=== PATIENT | female | born 1985 | race Caucasian/White ===

== ENCOUNTER → 2020-06-30 12:20 | Outpatient (BNVA) | payer SELFPAY | PROVIDERS: PCP Nurse Practitioner Family; Visit Provider Nurse Practitioner Family | DX: J06.9 Acute upper respiratory infection, unspecified (principal); R68.89 Other general symptoms and signs | CPT/HCPCS: 87400 ==

== ENCOUNTER 2021-09-23 11:59 | Emergency (ER) | payer MEDICAID, SELFPAY ==
[2021-09-23 12:27] VITALS: BP 102/67; PULSE 96; RESP 16; TEMP 36.8; O2SAT 100; BMI 21.3
--- NOTE | 2021-09-23 12:40 | CT_ITS ---
WS: [id number] CT ABDOMEN AND PELVIS WITH CONTRAST HISTORY: lower abd pain, recent hysterectomy on 09/09, possible fistula TECHNIQUE: Imaging performed of the abdomen and pelvis with IV contrast. Single phase imaging of the abdomen. Coronal and sagittal reformats are submitted. All CT scans at [facility] use at [address] one of these dose optimization techniques: automated exposure control; mA and/or kV adjustment per patient size (includes targeted exams where dose is matched to clinical indication); or iterative re construction. IV CONTRAST: Omnipaque 350; 95 mL IV. Oral contrast: No DLP: 348.90 mGy.cm COMPARISON: None available. Lower thorax: Lung bases are clear. Heart is normal size. No hiatal hernia. Liver/biliary system: Normal size liver. There is a surgical clip along the inferior RIGHT lobe of th e liver. No bile duct dilatation. Normal portal vein. Gallbladder: Status post cholecystectomy. Pancreas: Normal size pancreas and pancreatic duct. No adjacent inflammation. Spleen: Normal size spleen. No mass or infarct. Adrenal glands: Normal. Right kidney: Normal. Left kidney: Abnormal LEFT kidney. Margins of the LEFT kidney are irregular and slightly lobulated. T here are numerous small cortical masses. These are not simple cysts. The largest lobulated nodule in the lower pole measures 17 mm There is an additional solid nodule measuring 12 mm from the upper pole. There are additional scatter ed but subcentimeter small cortical foci of increased attenuation. No obstruction of the kidney. Aorta: Normal. Lymphadenopathy: None. Free fluid: There is a small amount of free fluid in the pelvis. Fluid is in the midline and extends to the RIGHT adnexa. Collection measures 6.3 x 2.1 cm and is conforming to the RIGHT adnexa. There is adjacent GI tract. There is soft tissue stranding especially within the anterior RIGHT lower quadran t. GI tract: Normal appendix extends into the RIGHT lower quadrant close to the postsurgical inflammator y changes. Abdominal wall: Unremarkable abdominal wall. No hernia. Pelvis: Postoperative changes in the pelvis. There is a partially loculated fluid collection the RIGH T adnexa measuring 6.3 x 2.1 cm. This is partially surrounded by GI tract. There is also small amount of free fluid more midline. Soft tissue stranding and induration within the pelvis. No free air. Bones: Unremarkable. CT/CT abdomen pelvis w con* [id number] IMPRESSION: 1. Patient is recent status post hysterectomy. 2. Fluid collection in the RIGHT adnexa measures 6.3 x 2.1 cm and is conformin g to the pelvic space. This could very well be a developing abscess or postoper ative seroma/hematoma. 3. Moderate soft tissue inflammation in the pelvis. 4. No free air. 5. Multiple high attenuation LEFT renal masses. Renal neoplasm is not excluded . Recommend follow-up renal ultrasound which can be performed on an outpatient basis. These masses will need to be evaluated for possible renal neoplasm. Notified Madelin Hinds MD at 09/23/2021 1:50 PM.
--- NOTE | 2021-09-23 12:54 | ED_ITS ---
HPI - General Adult General: Chief complaint: Abdominal Pain Stated complaint: Abd , back, genital pain Time Seen by Provider: 09/23/21 12:40 History of Present Illness: Patient is a 35-year-old female with a history of recent hysterectomy on 09/07/2021 from [facility], history of tubal ligations, prior C- section, cholecystectomy presenting to the emergency room with remittent lower abdominal pain. Patient says the pain started 3 days ago and has been progressively getting worse. Patient denies any fever/chills, new vaginal discharge or drainage. Patient denies any nausea/vomiting, decreased p.o. intake, diarrhea melena hematochezia. Since her surgery, patient has had dysuria symptoms. No prior history of renal colic. Denies any cough, runny nose sore throat, chest pain, short of breath, palpitation lightheadedness or body aches. Onset:3 days ago Duration:3 days Location:home Severity:moderate Associated symptoms: Deny chest pain, dyspnea, nausea, rash, palpitations or vomiting Review of Systems Const: Denies: fever(s) or chills Eyes: Denies: change in vision ENMT: Denies: mouth pain Card: Denies: chest pain or palpitations Resp: Denies: dyspnea or non-productive cough GI: Reports: abdominal pain (+lower abd pain); Denies: nausea, vomiting or diarrhea : Denies: dysuria Musc: Denies: extremity pain Skin/Breast: Denies: rash or new lesions Neuro: Denies: weakness in extremities Psych: Reports: other (Normal mood) Jay/Lymph: Denies: easy bruising PFSH ED PFSH: Medical History Flu-like symptoms Upper respiratory infection Surgical History H/O: hysterectomy History of cholecystectomy Hx of tubal ligation S/P cholecystectomy Family History Denies family history of Colon cancer Ovarian cancer Diabetes Heart disease Hypercholesteremia Breast cancer Bleeding disorder Hypertension Uterine cancer Thyroid disease Stroke Social History Additional social history: - Tobacco use: Alcohol use: Drug use: Physical Exam Const: COMMON NORMALS: alert HENMT: COMMON NORMALS: atraumatic HEAD & SCALP: atraumatic MOUTH: moist mucous membranes not abnormal Eye: COMMON NORMALS: EOMs intact bilaterally and conjunctivae normal CONJUNCTIVA: Yes conjunctivae normal Neck/C-Spine: COMMON NORMALS: full ROM and supple Resp: COMMON NORMALS: normal respiratory effort and clear to auscultation bilaterally AUSCULTATION: clear to auscultation bilaterally Cardio: COMMON NORMALS: regular rate RATE: regular rate GI: COMMON NORMALS: Soft to palpation PALPATION: Yes Soft to palpation OTHER: +B/l moderate lower abd TTP. NO guarding rebound, guarding, rigidity. No CVA tenderness to percussion. Neg Galindo/Neg McBurney's point tenderness, no suprabupic tenderness to palpation. Extremity: COMMON NORMALS: full ROM Neuro: SENSORIUM/ORIENTATION: Yes alert MOTOR EXAM: No Abnormal motor strength present and Other motor observations present (no focal motor deficits) Psych: COMMON NORMALS: speech normal SPEECH: Yes normal speech MOOD & AFFECT: Yes euthymic mood Course Vital Signs: Vital signs: Vital Signs Temperature 98.3 F 09/23/21 12:27 Pulse Rate 96 09/23/21 12:27 Respiratory Rate 16 09/23/21 12:27 Blood Pressure 102/67 09/23/21 12:27 Pulse Oximetry 100 09/23/21 12:27 Oxygen Delivery Me thod 09/23/21 12:27 MDM - General Adult Medical Decision Making 35-year-old female with a history of cholecystectomy, tubal ligation, recent hysterectomy on 09/07, presenting to the emergency room for evaluation of lower abdominal pain for the last 3 days intermittent colicky. Patient reports pain is 5 out of 10. Patient on exam has moderate tenderness palpation of lower abdomen without guarding or rebound tenderness. Patient is afebrile. White count of 8.5K. Incidental findings of L sided renal lesion discussed extensively with patient. Patient received a copy of the CT report with the documented findings. Patient is instructed to follow up urgently with specialists. Patient agrees with plan to do so. Patient is noted to have a right adnexal collection concerning for abscess jeanna chuck hematoma versus seroma. I have discussed case with Dr. Guerrero who recommended having patient be consulted with the primary surgical team at [facility]. I discussed case with Dr. Ni from [facility] at [facility] who recommended transfer at this time. Patient continues to be hemodynamically stable does not require any additional pain medicine. Case was discussed with Dr. Ni who agreed with the transfer to [facility] for management of R pelvic collection Disposition: Transfer to outside hospital Lab Data : 09/23/21 15:49 09/23/21 15:49 Radiology Impressions Abdomen/Pelvis CT 09/23/21 12:40 IMPRESSION: 1. Patient is recent status post hysterectomy. 2. Fluid collection in the RIGHT adnexa measures 6.3 x 2.1 cm and is conforming to the pelvic space. This could very well be a developing abscess or postoperative seroma/hematoma. 3. Moderate soft tissue inflammation in the pelvis. 4. No free air. 5. Multiple high attenuation LEFT renal masses. Renal neoplasm is not excluded. Recommend follow-up renal ultrasound which can be performed on an outpatient basis. These masses will need to be evaluated for possible renal neoplasm. Notified Madelin Hinds MD at 09/23/2021 1:50 PM. Laboratory Results WBC 8.5 10^3/uL (4.0-10.0) 09/23/21 15:49 RBC 3.96 10^6/uL (4.1-5.3) L 09/23/21 15:49 Hgb 12.6 g/dL (11.5-15.3) 09/23/21 15:49 Hct 37.6 % (37.0-47.0) 09/23/21 15:49 MCV 94.9 fl (81-99) 09/23/21 15:49 MCH 31.8 pg (28.0-34.0) 09/23/21 15:49 MCHC 33.5 g/dL (30.0-36.0) 09/23/21 15:49 RDW 12.0 % (12.1-15.1) L 09/23/21 15:49 Plt Count 158 10^3/cmm (130-400) 09/23/21 15:49 MPV 11.2 fL (7.4-10.4) H 09/23/21 15:49 Neut % (Auto) 58.8 % 09/23/21 15:49 Lymph % (Auto) 26.1 % 09/23/21 15:49 [place] % (Auto) 8.0 % 09/23/21 15:49 Eos % (Auto) 6.0 % 09/23/21 15:49 Baso % (Auto) 0.9 % 09/23/21 15:49 Neut # (Auto) 4.96 10^3/uL (1.8-7.7) 09/23/21 15:49 Lymph # (Auto) 2.2 10^3/uL (0.8-4.8) 09/23/21 15:49 [place] # (Auto) 0.7 10^3/uL (0.2-0.9) 09/23/21 15:49 Eos # (Auto) 0.5 10^3/uL (0.0-0.8) 09/23/21 15:49 Baso # (Auto) 0.1 10^3/uL (0.0-0.1) 09/23/21 15:49 Nucleated RBC % (auto) 0 % 09/23/21 15:49 Nucleated RBCs # 0.0 /100WBC 09/23/21 15:49 Sodium 139 mmol/L (136-145) 09/23/21 15:49 Potassium 4.8 mmol/L (3.5-5.1) 09/23/21 15:49 Chloride 104 mmol/L (98-107) 09/23/21 15:49 Carbon Dioxide 29 mmol/L (22-29) 09/23/21 15:49 Anion Gap 10.8 (5-19) 09/23/21 15:49 BUN 8 mg/dL (6-20) 09/23/21 15:49 Creatinine 0.6 mg/dL (0.5-0.9) 09/23/21 15:49 GFR Calculation 113.8 mL/min (90-130) 09/23/21 15:49 Glucose 91 mg/dL (65-115) 09/23/21 15:49 Calculated Osmolality 286 mOsm/kg (285-295) 09/23/21 15:49 Lactate 0.5 mmol/L (0.5-2.2) 09/23/21 13:13 Calcium 8.7 mg/dL (8.5-10.5) 09/23/21 15:49 Total Bilirubin 0.6 mg/dL (0.15-1.2) 09/23/21 15:49 AST 14 U/L (0-32) 09/23/21 15:49 ALT < 5 U/L (0-33) 09/23/21 15:49 Alkaline Phosphatase 84 IU/L (35-105) 09/23/21 15:49 Total Protein 6.2 g/dL (6.6-8.7) L 09/23/21 15:49 Albumin 3.7 g/dL (3.5-5.2) 09/23/21 15:49 Globulin 2.5 g/dL (1.3-4.6) 09/23/21 15:49 Lipase 26 U/L (13-60) 09/23/21 15:49 HCG, Qual Negative (Negative) 09/23/21 15:07 Imaging Data Other Imaging: Radiologist's impression: Close Abdomen/Pelvis CT (Signed) Kaley Hernandez - 09/23/21 Launch?[place] [id number] CT Scan Report Signed Patient: Ania Johnston Unit #: [id number] : 1985 Age/Sex: 35 / F ADM Date: 09/23/21 Loc: ER Room/Bed: Attending Dr: Ordering Provider/Ordering MD: Madelin Hinds MD Date of Service: 09/23/21 Procedure(s): CT abdomen pelvis w con* [id number] Accession Number(s): [id number] Report Number: [id number] WS: [id number] CT ABDOMEN AND PELVIS WITH CONTRAST HISTORY: lower abd pain, recent hysterectomy on 09/09, possible fistula TECHNIQUE: Imaging performed of the abdomen and pelvis with IV contrast.? Single phase imaging of the abdomen. Coronal and sagittal reformats are submitted.? All CT scans at [facility] use at least one of these dose optimization techniques: automated exposure control; mA and/or kV adjustment per patient size (includes targeted exams where dose is matched to clinical indication); or iterative reconstruction. IV CONTRAST: Omnipaque 350; 95 mL IV. Oral contrast: No DLP: 348.90 mGy.cm COMPARISON: None available. Lower thorax: Lung bases are clear. Heart is normal size. No hiatal hernia. Liver/biliary system: Normal size liver. There is a surgical clip along the inferior RIGHT lobe of the liver. No bile duct dilatation. Normal portal vein. Gallbladder: Status post cholecystectomy.? Pancreas: Normal size pancreas and pancreatic duct. No adjacent inflammation. Spleen: Normal size spleen. No mass or infarct. Adrenal glands: Normal. Right kidney: Normal. Left kidney: Abnormal LEFT kidney. Margins of the LEFT kidney are irregular and slightly lobulated. There are numerous small cortical masses. These are not simple cysts. The largest lobulated nodule in the lower pole measures 17 mm There is an additional solid nodule measuring 12 mm from the upper pole. There are additional scattered but subcentimeter small cortical foci of increased attenuation. No obstruction of the kidney. Aorta: Normal. Lymphadenopathy: None. Free fluid: There is a small amount of free fluid in the pelvis. Fluid is in the midline and extends to the RIGHT adnexa. Collection measures 6.3 x 2.1 cm and is conforming to the RIGHT adnexa. There is adjacent GI tract. There is soft tissue stranding especially within the anterior RIGHT lower quadrant. GI tract: Normal appendix extends into the RIGHT lower quadrant close to the postsurgical inflammatory changes. Abdominal wall: Unremarkable abdominal wall. No hernia. Pelvis: Postoperative changes in the pelvis. There is a partially loculated fluid collection the RIGHT adnexa measuring 6.3 x 2.1 cm. This is partially surrounded by GI tract. There is also small amount of free fluid more midline. Soft tissue stranding and induration within the pelvis. No free air. Bones: Unremarkable. CT/CT abdomen pelvis w con* [id number] IMPRESSION: ? 1.? Patient is recent status post hysterectomy. 2.? Fluid collection in the RIGHT adnexa measures 6.3 x 2.1 cm and is conforming to the pelvic space. This could very well be a developing abscess or postoperative seroma/hematoma. 3.? Moderate soft tissue inflammation in the pelvis. 4.? No free air. 5.? Multiple high attenuation LEFT renal masses. Renal neoplasm is not excluded. Recommend follow-up renal ultrasound which can be performed on an outpatient basis. These masses will need to be evaluated for possible renal neoplasm. ? ? Notified Madelin Hinds MD at 09/23/2021 1:50 PM. ? Dictated By: Kaley Hernandez DO Signed By: Kaley Hernandez DO Signed Date/Time: 09/23/21 1352 DD/ 1336 Discharge Plan Discharge Condition: Stable Prescriptions: No Action [place] 5-325 mg Tablet 1 tab PO Q6H PRN (Reason: Pain) Referrals: MARGOTH Crook FNP [Primary Care Provider] - Coding Level of Care Code ED [employer] for Chg Fwd Exam Comprehensive
[2021-09-23] MEDS: iohexol 350 mg/mL 100 mL Btl IV (13:10)
[2021-09-23 14:14] LABS: Lactate (Lactic Acid level) 0.5 mmol/L (0.5-2.2)
[2021-09-23] MEDS: sodium chloride 0.9% 1,000 ML 999 ML IV (14:31)
[2021-09-23 15:23] LABS: HCG Qualitative Urine. Negative (Negative)
[2021-09-23 16:23] LABS: Basophils # 0.1 10^3/uL (0.0-0.1); Basophils % 0.9 %; Eosinophils # 0.5 10^3/uL (0.0-0.8); Hematocrit 37.6 % (37.0-47.0); Hemoglobin 12.6 g/dL (11.5-15.3); Lymphocytes # 2.2 10^3/uL (0.8-4.8); Lymphocytes % 26.1 %; Mean Corpuscular HGB Conc 33.5 g/dL (30.0-36.0); Mean Corpuscular Hemoglobin 31.8 pg (28.0-34.0); Mean Corpuscular Volume 94.9 fl (81-99); Mean Platelet Volume 11.2 fL (7.4-10.4); Monocytes # 0.7 10^3/uL (0.2-0.9); Neutrophils # 4.96 10^3/uL (1.8-7.7); Neutrophils % 58.8 %; Nucleated Red Blood Cells % 0 %; Platelet Count 158 10^3/cmm (130-400); Red Blood Count 3.96 10^6/uL (4.1-5.3); White Blood Count 8.5 10^3/uL (4.0-10.0)
[2021-09-23 16:47] LABS: Alanine Aminotransferase < 5 U/L (0-33); Albumin Level 3.7 g/dL (3.5-5.2); Alkaline Phosphatase 84 IU/L (35-105); Blood Urea Nitrogen 8 mg/dL (6-20); Calcium 8.7 mg/dL (8.5-10.5); Carbon Dioxide 29 mmol/L (22-29); Chloride 104 mmol/L (98-107); Globulin 2.5 g/dL (1.3-4.6); Glomerular Filtration Rate 113.8 mL/min (90-130); Glucose 91 mg/dL (65-115); Lipase 26 U/L (13-60); Osmolality Calculated 286 mOsm/kg (285-295); Sodium 139 mmol/L (136-145); Total Bilirubin 0.6 mg/dL (0.15-1.2); Total Protein 6.2 g/dL (6.6-8.7)
[2021-09-23 17:02] LABS: Anion Gap 10.8 (5-19); Potassium 4.8 mmol/L (3.5-5.1)
[2021-09-23 17:03] LABS: Aspartate Amino Transferase 14 U/L (0-32)
[2021-09-23 23:43] LABS: Add Urine Microscopic? NO; Charge for UA Resulting for Rev
[2021-09-23 23:54] LABS: Urine Appearance Clear (CLEAR); Urine Color Straw (Yellow)
[2021-09-23 23:55] LABS: Bilirubin Urine Neg (Negative); Blood Urine Neg (Negative); Glucose Urine UA Norm (Normal); Ketones Urine Negative (Negative); Leukocyte Esterase Urine Negative (Negative); Nitrate Urine Negative (Negative); Protein Urine Neg (Negative); Urobilinogen Urine Neg (Negative); pH Urine 7 (5-7)
== END 2021-09-23 22:54 ==
PROVIDERS: Emergency Medicine; Emergency Provider Emergency Medicine; PCP Nurse Practitioner Family
DX: R10.9 Unspecified abdominal pain (principal); Z90.710 Acquired absence of both cervix and uterus
CPT/HCPCS: 74177; 80053; 81003; 81025; 83605; 83690; 85025; 99284; J7030; Q9967

== ENCOUNTER 2022-03-08 10:25 | Outpatient (CLI) | payer MEDICAID, SELFPAY ==
--- NOTE | 2022-03-08 10:36 | MM_ITS ---
WS: [id number] Diagnostic DIGITAL TOMOSYNTHESIS MAMMOGRAM WITH CAD HISTORY: BREAST TENDERNESS, bilateral COMPARISON: None available. Bilateral CC, ML and MLO with tomosynthesis views submitted. Synthetic mammography reviewed. Computer aided detection analyzed. Breast composition: The breasts are heterogeneously dense, which may obscure small masses. No suspici ous masses, microcalcifications or architectural distortion. MM/[place] [id number] IMPRESSION: BI-RADS: 1-Negative FOLLOW UP: 1 Year Follow-up
== END 2022-03-08 10:26 | disposition home or self-care (01) ==
LOC: RAD 10:25
PROVIDERS: PCP Nurse Practitioner Family; Visit Provider Nurse Practitioner Family
DX: N64.4 Mastodynia (principal)
CPT/HCPCS: 77062; G0279

== ENCOUNTER 2022-07-13 09:38 | Outpatient (CLI) | payer MEDICAID, SELFPAY ==
--- NOTE | 2022-07-13 09:50 | USCV_ITS ---
Ania Johnston Age: 36 Gender: F : 1985 Exam Date: 07/13/2022 10:07 Ordering Phys: Matti Fried Technologist: Stephane Koch Exam Location: [facility] [place] Indication: claudication RIGHT LEFT Brachial 123.00 mmHg Brachial 123.00 mmHg Pressure (mmHg) Waveform Pressure (mmHg) Waveform 1.00 Ankle/Brachial Index 1.00 1.00 Post-Exercise Ankle Brachial Index 1.00 FINDINGS Resting CHERYLE 1.13 on the right and 1.16 on the left Post exercise CHERYLE 1.04 on the right and 1.10 on the left CONCLUSIONS No evidence of any significant arterial obstruction, based on the above findings. Dr Sarah Pratt MD [facility] (Electronically Signed) Final Date: 14 Jul 2022 17:08 S
== END 2022-07-13 09:39 | disposition home or self-care (01) ==
LOC: RAD 09:42
PROVIDERS: PCP Family Medicine; Visit Provider Family Medicine
DX: I73.9 Peripheral vascular disease, unspecified (principal)
CPT/HCPCS: 93922

== ENCOUNTER 2022-09-03 01:26 | Emergency (ER) | payer MEDICAID, SELFPAY ==
[2022-09-03 01:28] VITALS: BP 118/67; PULSE 95; RESP 14; TEMP 36.8; O2SAT 98
[2022-09-03 01:37] VITALS: BP 114/68; RESP 16; O2SAT 100
--- NOTE | 2022-09-03 02:00 | XRR_ITS ---
PROCEDURE INFORMATION: Exam: XR Right Hand Exam date and time: 09/03/2022 2:13 AM Age: 36 years old Clinical indication: Injury or trauma; Fall; Blunt trauma (contusions or hematomas); Right; Patient HX: Patient fell approximately five feet from outside deck at home landing onto RT side. C/O RT rib, RT wrist/hand, and left foot pain. ; Additional info: Fall hand pain swelling TECHNIQUE: Imaging protocol: Radiologic exam of the right hand. Views: 3 or more views. COMPARISON: No relevant prior studies available. FINDINGS: Bones/joints: Comminuted but minimally displaced intra-articular fracture of the distal radius noted. Intact ulna. Carpal bones are intact. Soft tissues: Extensive diffuse soft tissue swelling is noted dorsally. XR/XR hand RT min 3V* [id number] IMPRESSION: Comminuted intra-articular fracture of the distal radius with minimal displacement. Severe dorsal soft tissue swelling. No additional acute bony abnormality.
--- NOTE | 2022-09-03 02:00 | XRR_ITS ---
PROCEDURE INFORMATION: Exam: XR Right Forearm Exam date and time: 09/03/2022 2:16 AM Age: 36 years old Clinical indication: Injury or trauma; Fall; Blunt trauma (contusions or hematomas); Arm, lower; Right; Patient HX: Patient fell approximately five feet from outside deck at home landing onto RT side. C/O RT rib, RT wrist/hand, and left foot pain. ; Additional info: Fall forearm pain TECHNIQUE: Imaging protocol: Radiologic exam of the right forearm. Views: 2 views. COMPARISON: CR (UP EXM, ) 09/03/2022 2:13 AM FINDINGS: Bones/joints: Proximal radius and ulna are intact. There is a comminuted fracture of the distal radius with intra-articular extension. Soft tissues: Normal. XR/XR forearm RT 2V [id number] IMPRESSION: Comminuted intra-articular fracture of the distal radius. Intact ulna. Intact proximal radius.
--- NOTE | 2022-09-03 02:00 | XRR_ITS ---
PROCEDURE INFORMATION: Exam: XR Right Ribs with PA Chest Exam date and time: 09/03/2022 2:18 AM Age: 36 years old Clinical indication: Injury or trauma; Fall; Rib area; Blunt trauma (contusions or hematomas); Prior surgery; Surgery date: 6+ months; Surgery type: Gb; Patient HX: Patient fell approximately five feet from outside deck at home landing onto RT side. C/O RT rib, RT wrist/hand, and left foot pain. ; Additional info: Fall R rib pain TECHNIQUE: Imaging protocol: Radiologic exam of the right ribs with PA chest. Views: 3 views COMPARISON: CT abdomen pelvis w con* [id number] 09/23/2021 1:07 PM FINDINGS: Lungs: Clear, symmetrically inflated lungs. Pleural spaces: No pleural effusion. No pneumothorax. Heart/Mediastinum: Cardiac silhouette is normal in size for technique. Bones/joints: Age appropriate. XR/XR ribs RT mn 3V w CXR1V [id number] IMPRESSION: No displaced rib fractures are seen, but there is limited plain film sensitivity for nondisplaced fractures. Regardless, there is no evidence of pneumothorax, pulmonary parenchymal contusion, or pleural effusion.
--- NOTE | 2022-09-03 02:00 | XRR_ITS ---
PROCEDURE INFORMATION: Exam: XR Left Foot Exam date and time: 09/03/2022 2:10 AM Age: 36 years old Clinical indication: Injury or trauma; Fall; Blunt trauma; Patient HX: Patient fell approximately five feet from outside deck at home landing onto RT side. C/O RT rib, RT wrist/hand, and left foot pain. ; Additional info: Fall foot pain, swelling TECHNIQUE: Imaging protocol: Radiologic exam of the left foot. Views: 3 or more views. COMPARISON: No relevant prior studies available. FINDINGS: Bones/joints: No evidence of acute fracture or dislocation. No erosive disease. No significant degenerative change. Soft tissues: Normal. XR/XR foot LT min 3V* [id number] IMPRESSION: No acute bony abnormality.
[2022-09-03 02:05] VITALS: RESP 16
[2022-09-03] MEDS: oxyCODONE-APAP 5-325 mg Tablet 2 TAB PO (02:05)
[2022-09-03] MEDS: ketorolac 30 mg/mL INJ IVP (02:10)
--- NOTE | 2022-09-03 02:22 | ED_ITS ---
HPI - Fall General: Chief Complaint: Fall Stated Complaint: Fell off Deck Rt arm Injury Time Seen by Provider: 09/03/22 01:30 Source: patient and family History of Present Illness: 36-year-old female presenting after falling 5 feet or so off of her deck at home. She fell on her right side. She complains of pain to the right wrist/hand, right lateral chest, and left foot. She did not hit her head. She has no neck pain. No belly pain or vomiting. complaint: fall Onset (ago): hour(s) Prolonged down time: no Symptoms prior to fall: none Context: tripped/slipped Location of injury: chest Location of injury - extremities: Left: foot and Right: forearm and hand Associated symptoms-after fall: Reports chest pain (Rib pain); Denies abdominal pain, headache(s) or neck pain Review of Systems Eyes: Denies: change in vision ENMT: Denies: throat pain Card: Reports: chest pain (Rib pain) Resp: Denies: dyspnea, productive cough or non-productive cough GI: Denies: abdominal pain, nausea or vomiting : Denies: flank pain Musc: Denies: neck pain or back pain Neuro: Denies: headache(s) PFSH ED PFSH: Medical History Flu-like symptoms Upper respiratory infection Surgical History H/O: hysterectomy History of cholecystectomy Hx of tubal ligation S/P cholecystectomy Family History Denies family history of Colon cancer Ovarian cancer Diabetes Heart disease Hypercholesteremia Breast cancer Bleeding disorder Hypertension Uterine cancer Thyroid disease Stroke Social History Additional social history: - Tobacco use: Alcohol use: Drug use: Physical Exam Const: COMMON NORMALS: no acute distress GENERAL APPEARANCE: cooperative; not ill appearing and not frail appearing HENMT: COMMON NORMALS: normocephalic, atraumatic and Normal external nose present HEAD & SCALP: normocephalic and atraumatic FACE & SINUS: normal facial exam and face symmetric NOSE: Normal external nose present Eye: COMMON NORMALS: Equal, round and reactive pupils present and EOMs intact bilaterally PUPIL: Yes Equal, round and reactive pupils present Neck/C-Spine: GENERAL: Yes trachea midline Chest: CHEST: Yes Symmetrical chest wall rise and Yes tenderness (Right lateral chest) Resp: COMMON NORMALS: normal respiratory effort, No retractions, No use of accessory muscles and clear to auscultation bilaterally AUSCULTATION: clear to auscultation bilaterally Cardio: COMMON NORMALS: regular rate and regular rhythm RATE: regular rate RHYTHM: regular rhythm GI: COMMON NORMALS: Normal to inspection, nondistended, normoactive bowel sounds present Back/Pelvis: OTHER: No spinal tenderness Extremity: COMMON NORMALS: no pedal edema NARRATIVE EXTREMITY EXAM: Right wrist and hand swelling. Tenderness over the distal radius, and wrist. Left lateral foot swelling and tenderness as well. No deformity. Neuro: JOANNE COMA SCALE: document GCS findings Joanne coma scale eye opening: Spontaneous Joanne coma scale verbal response: Orientated [facility] coma scale motor response: Obey commands [facility] coma scale total score: 15 SENSORY EXAM: Yes extremities (intact) Psych: COMMON NORMALS: speech normal SPEECH: Yes normal speech Skin: COMMON NORMALS: no rashes or lesions noted GENERAL SKIN EXAM: no rashes or lesions noted Course Vital Signs: Vital signs: Vital Signs Temperature 98.2 F 09/03/22 01:28 Pulse Rate 95 09/03/22 01:28 Respiratory Rate 16 09/03/22 02:05 Blood Pressure 114/68 09/03/22 01:37 Pulse Oximetry 100 09/03/22 01:37 Oxygen Delivery Me thod Room Air 09/03/22 01:37 MDM - Fall Medical Decision Making No rib fracture. No pneumothorax. Comminuted intra-articular nondisplaced distal radius fracture present on forearm and hand films. No hand fracture. No foot fracture. Sugar-tong splint. Close outpatient follow-up with orthopedics given intra-articular fracture on the right wrist. Warning signs for return, particularly for pulmonary contusion given. Discharge Plan Discharge Patient Disposition: Home Clinical Impression: Chest wall contusion, Contusion of foot, left Fracture of wrist Qualifiers: Encounter type: initial encounter Fracture type: closed Laterality: right Qualified Code(s): S62.101A - Fracture of unspecified carpal bone, right wrist, initial encounter for closed fracture Condition: Stable Prescriptions: New Percocet 7.5-325 mg tablet 1 tab PO Q6H PRN (Reason: pain) Qty: 10 0RF No Action [place]on 5-325 mg Tablet 1 tab PO Q6H PRN (Reason: Pain) Discharge Orders: Discharge ED (Routine); Ordered 09/03/22 Ordered By: Brice Birmingham Referrals: Ayden Doyle DO [Physician] - 1-3 days Matti Fried [Primary Care Provider] - Patient Instructions: Wrist Fracture in Adults (ED), Contusion in Adults (ED), Opioid Safety, Pain Management Activity Restrictions/Additional Instructions: Case management will make an appointment for follow-up with orthopedics for you. You should hear from them Sunday. Stay in splint until evaluated by orthopedics. Ice through the splint. Pain medication for significant pain. Return for any other problems. Coding Level of Care Code ED Clerical Grader for Vira Murray
[2022-09-03 03:14] VITALS: BP 121/70; PULSE 71; RESP 16
--- NOTE | 2022-09-04 07:53 | DCPLANNER ---
Addendum entered by Emmy Hodgson 09/21/22 10:00: Patient had a follow up appointment with ortho - patient did attend appointment. Addendum entered by Emmy Hodgson 09/05/22 16:00: Patient has a follow up appointment scheduled for Sunday, September 06, 2022 at 10:15 with Nelson Fields at ortho. Original Note: sales team manager had message to schedule a follow up appointment for patient with ortho. sales team manager sent patients information to the front office staff at ortho. Patients information will be printed and reviewed. Clinic will call patient with appointment information.
== END 2022-09-03 03:14 | disposition home or self-care (01) ==
PROVIDERS: Emergency Provider Emergency Medicine; PCP Family Medicine
DX: S52.572A Other intraarticular fracture of lower end of left radius, initial encounter for closed fracture (principal); S20.219A Contusion of unspecified front wall of thorax, initial encounter; S90.32XA Contusion of left foot, initial encounter; W17.89XA Other fall from one level to another, initial encounter; Y92.009 Unspecified place in unspecified non-institutional (private) residence as the place of occurrence of the external cause
CPT/HCPCS: 29125; 71101; 73090; 73130; 73630; 99284; J1885

== ENCOUNTER → 2022-09-06 14:44 | Outpatient (BNVA) | payer MEDICAID, SELFPAY | PROVIDERS: PCP Family Medicine; Referring Provider Emergency Medicine; Visit Provider Nurse Practitioner Family | DX: S52.124A Nondisplaced fracture of head of right radius, initial encounter for closed fracture (principal); W17.89XA Other fall from one level to another, initial encounter | CPT/HCPCS: 73110; 73130 ==

== ENCOUNTER 2022-09-06 16:10 | Outpatient (CLI) | payer MEDICAID, SELFPAY | END 2022-09-06 16:11 | disposition home or self-care (01) | LOC: SPT 16:10 | PROVIDERS: PCP Family Medicine; Visit Provider Nurse Practitioner Family | DX: Z46.89 Encounter for fitting and adjustment of other specified devices (principal); S62.109D Fracture of unspecified carpal bone, unspecified wrist, subsequent encounter for fracture with routine healing; X58.XXXD Exposure to other specified factors, subsequent encounter | CPT/HCPCS: 97760; L3982 ==

== ENCOUNTER → 2022-09-20 14:48 | Outpatient (BNVA) | payer MEDICAID, SELFPAY | PROVIDERS: PCP Family Medicine; Visit Provider Nurse Practitioner Family | DX: S52.124A Nondisplaced fracture of head of right radius, initial encounter for closed fracture; X58.XXXA Exposure to other specified factors, initial encounter | CPT/HCPCS: 73130 ==

== ENCOUNTER → 2022-10-17 10:10 | Outpatient (BNVA) | payer MEDICAID, SELFPAY | PROVIDERS: PCP Family Medicine; Visit Provider Nurse Practitioner Family | DX: S52.124A Nondisplaced fracture of head of right radius, initial encounter for closed fracture; X58.XXXA Exposure to other specified factors, initial encounter | CPT/HCPCS: 73110 ==

== ENCOUNTER 2022-10-23 12:34 | Outpatient (CLI) | payer MEDICAID, SELFPAY ==
[2022-10-23 13:06] VITALS: BMI 19.3
--- NOTE | 2022-10-23 13:07 | ECG_ITS ---
[facility] Test Date: 2022-10-23 Pat Name: Ania Johnston Department: Room: Gender: Female Chief Maintenance Supervisor: Kate Sharpe : 1985 Requested By: Matti Fried Order Number: [id number] Yeager MD: Rangel Taylor M.D. Interpretive Statements NAME OF STUDY: TREADMILL STRESS TEST INDICATION: [Chest Pain] EXERCISE DATA: The patient was exercised by Efren protocol. Baseline heart rate was 67 beats per minute. Baseline blood pressure was 104/58 millimeters of mercury. Target heart rate was 157 beats per minute. Maximum heart rate achieved was 164 which was 104% of the target heart rate. Maximum blood pressure was 134/61 millimeters of mercury. Total exercise time was 5 minutes and 1 seconds. Maximum METs achieved was 7.The reason for ending the test was maximal effort achieved. ELECTROCARDIOGRAM: BASELINE: Showed sinus rhythm, normal axis, no significant ST-T changes at the baseline noted. [] EXERCISE: At the peak exercise level, [] No significant ST-T changes suggestive of ischemia noted. [] RECOVERY: During the recovery period, heart rate dropped appropriately. No significant ST-T changes in the recovery suggestive of ischemia noted. [] CONCLUSION: 1. Exercise capacity is fair. 2. Heart rate response was appropriate 3. Blood pressure response was appropriate 4. Symptoms not suggestive of ischemia. 5. Stress test is negative for ischemia Electronically Signed On 11-06-2022 12:17:42 CDT by Rangel Taylor M.D. [email or web address]
[2022-10-23 13:49] VITALS: BP 137/56; PULSE 86
== END 2022-10-23 12:35 | disposition home or self-care (01) ==
PROVIDERS: PCP Family Medicine; Visit Provider Family Medicine
DX: R07.9 Chest pain, unspecified (principal)
CPT/HCPCS: 93017

== ENCOUNTER → 2023-11-20 13:09 | Outpatient (BNVA) | payer MEDICAID, SELFPAY | PROVIDERS: PCP Family Medicine; Visit Provider Orthopaedic Surgery | DX: M51.26 Other intervertebral disc displacement, lumbar region (principal); M54.9 Dorsalgia, unspecified; M54.41 Lumbago with sciatica, right side; M54.42 Lumbago with sciatica, left side; G89.29 Other chronic pain | CPT/HCPCS: 72110 ==

== ENCOUNTER 2023-11-27 06:00 | Outpatient (RCR) | payer MEDICAID, SELFPAY | END 2023-12-27 23:59 | disposition home or self-care (01) | LOC: WPT 06:00 | PROVIDERS: PCP Family Medicine; Visit Provider Orthopaedic Surgery | DX: M54.9 Dorsalgia, unspecified (principal); M54.2 Cervicalgia; G89.29 Other chronic pain | CPT/HCPCS: 97110; 97112; 97140; 97161; 97530 ==

== ENCOUNTER 2023-12-28 06:00 | Outpatient (RCR) | payer MEDICAID, SELFPAY | END 2024-01-26 23:59 | disposition home or self-care (01) | LOC: WPT 06:00 | PROVIDERS: PCP Family Medicine; Visit Provider Orthopaedic Surgery | DX: M54.2 Cervicalgia (principal); M54.9 Dorsalgia, unspecified; G89.29 Other chronic pain | CPT/HCPCS: 97110; 97112; 97140; 97530 ==

== ENCOUNTER → 2024-01-08 14:30 | Outpatient (BNVA) | payer MEDICAID, SELFPAY | PROVIDERS: PCP Family Medicine; Visit Provider Nurse Practitioner Family | DX: M54.9 Dorsalgia, unspecified (principal); G89.29 Other chronic pain; R10.9 Unspecified abdominal pain; M25.50 Pain in unspecified joint; Z79.899 Other long term (current) drug therapy; Z13.6 Encounter for screening for cardiovascular disorders | CPT/HCPCS: 80053; 80061; 81003; 82306; 82607; 83036; 84443; 85025; 85651; 86038; 86140; 86200; 86431 ==

== ENCOUNTER → 2024-01-10 14:01 | Outpatient (BNVA) | payer MEDICAID, SELFPAY | PROVIDERS: PCP Family Medicine; Visit Provider Nurse Practitioner Family | DX: Z79.899 Other long term (current) drug therapy (principal) | CPT/HCPCS: 81003 ==

== ENCOUNTER 2024-01-27 06:00 | Outpatient (RCR) | payer MEDICAID, SELFPAY | END 2024-02-26 23:59 | disposition home or self-care (01) | LOC: WPT 06:00 | PROVIDERS: PCP Nurse Practitioner Family; Visit Provider Orthopaedic Surgery | DX: M54.2 Cervicalgia (principal); M54.9 Dorsalgia, unspecified; G89.29 Other chronic pain | CPT/HCPCS: 97110; 97112; 97140; 97530 ==

== ENCOUNTER → 2024-02-05 08:21 | Outpatient (BNVA) | payer MEDICAID, SELFPAY | PROVIDERS: PCP Nurse Practitioner Family; Visit Provider Family Medicine | DX: Z01.818 Encounter for other preprocedural examination (principal) | CPT/HCPCS: 81003 ==

== ENCOUNTER 2024-02-13 17:48 | Observation (INO) | payer MEDICAID, SELFPAY ==
[2024-02-13] VITALS (13 sets, daily range): BP systolic 87–140; BP diastolic 40–86; PULSE 59–94; RESP 15–16; TEMP 36.4; O2SAT 92–100
--- NOTE | 2024-02-13 | XR_ITS ---
WS: [id number] C-ARM RADIOGRAPHS LUMBAR SPINE; 3 IMAGES HISTORY: AKASH PICS COMPARISON: None available. Intraoperative imaging during L5-S1 fusion with intervertebral body graft. XR/XR lumbar spine 2-3V* [id number] IMPRESSION: Intraoperative imaging during L5-S1 fusion.
[2024-02-13] MEDS: sodium chloride 0.9% 1,000 ML 30 ML IV (12:44)
--- NOTE | 2024-02-13 14:54 | ANES.PREANE2 ---
Pre-Anesthetic Assessment Height/Weight: Height 1.68 m Weight 63.503 kg Temp Pulse Resp BP Pulse Ox O2 Del Method 97.6 F 88 16 111/58 100 Room Air 02/13/24 12:28 02/13/24 12:28 02/13/24 12:28 02/13/24 12:28 02/13/24 12:02/13/24 12:28 Preop Diagnosis: Lumbar stenosis neurogenic claudication; L5-S1 spondylolisthesis Operation Date: 02/13/24 14:00 Proposed Procedures p Spinal Fusion PSF(Not Applicable) - Ayden Doyle DO s Posterior Lumbar Interbody Fusion PLIF(Not Applicable) - Ayden Doyle DO Familial anesthetic complications: NOne Was Beta Alex taken within 24 hours: N/A Was Clonidine taken within 24 hours: N/A Last intake: Intake Last Liquid Date 02/12/24 Last Liquid Time 22:30 Last Solid Date 02/12/24 Last Solid Time 22:30 Social No alcohol and No tobacco Exam alert, oriented x 3, clear to auscultation bilaterally and regular rate & rhythm Airway Mallampati: Class II Dentition: full Anesthetic Plan ASA status: 1 Anesthesia: General Risk of > 500 ml blood loss (7ml/kg in children): No Medications/Allergies Home Medications Medication Instructions Recorded Confirmed Last Taken Type calcium 600 mg-D3 800 unit-mag11 1 tab PO BID #60 tabs 01/17/24 02/13/24 02/12/24 Rx 50 sc-qgjz-xbkwqt-reyes-s.borat tablet (Caltrate 600-D Plus Minerals) Bone Growth Stimulator #1 ea 02/11/24 Unknown Rx Allergies Allergy/AdvReac Type Severity Reaction Status Date / Time escitalopram [From Lexapro] Allergy rash Verified 02/12/24 09:55 Current Medications Generic Name Dose Route Start Last Admin Trade Name Freq PRN Reason Stop Dose Admin Sodium Chloride 1,000 mls @ 30 mls/hr 02/13/24 12:30 02/13/24 12:44 Sodium Chloride 0.9% IV 02/14/24 12:29 30 mls/hr .Q24H SINDHU Administration PFSH Anesthesia Medical History Vitamin D deficiency Fatigue Encounter for screening for cardiovascular disorders Medication management Joint pain Abdominal pain Upper respiratory infection Flu-like symptoms Surgical History H/O: hysterectomy Hx of tubal ligation History of cholecystectomy S/P cholecystectomy Family History Denies family history of Colon cancer Ovarian cancer Diabetes Heart disease Hypercholesteremia Breast cancer Bleeding disorder Hypertension Uterine cancer Thyroid disease Stroke Social History Smoking and tobacco/nicotine status: current every day tobacco/nicotine user Additional social history: - Tobacco use: Alcohol use: Drug use: Data Anesthesia Cardiac Studies: No Data to Display
--- NOTE | 2024-02-13 15:54 | W.PM.OPSUD ---
Surgery/Procedure H&P Update DATE OF PROCEDURE: February 13, 2024 DATE H&P PERFORMED: 02/05/24 H&P UPDATE INFORMATION: I have reviewed H&P completed within last 30 days, I have examined patient prior to procedure and No changes to prior documentation PREOP DIAGNOSIS: Lumbar stenosis neurogenic claudication; L5-S1 spondylolisthesis PLANNED PROCEDURE: Operation Date: 02/13/24 14:00 Proposed Procedures p Spinal Fusion PSF(Not Applicable) - Ayden Doyle DO s Posterior Lumbar Interbody Fusion PLIF(Not Applicable) - Ayden Doyle DO
[2024-02-13] MEDS: heparin, porcine 1,000 unit/mL INJ 10 mL 6000 UNIT XX (16:07)
[2024-02-13] MEDS: ceFAZolin 2,000 mg SDV 2000 MG IVP ×2 (16:08→23:11)
--- NOTE | 2024-02-13 16:22 | P.ANES_ITS ---
Anesthesia Procedures Procedure/Date: 02/13/24 Endotracheal Intubation Procedure Narrative: A time out was performed. My hands were washed immediately prior to the procedure. I wore a surgical cap, mask with protective eyewear, gown and gloves throughout the procedure. The patient was placed on a conveyor monitor including continuous pulse oximetry. The patient received Propofol, lidocaine, and fentanyl for induction and Rocuronium for adequate paralysis. Please the Anesthiesiology Service's documentation for exact medication dosing. for the Using a MAC 3 laryngoscope and a size 7 endotracheal tube with stylet, and with maintenance of cricoid pressure, the patient was intubated on the first attempt. The stylet was removed and cuff balloon was inflated. Appropriate endotracheal tube position was confirmed by direct visualization of vocal cord passage, fogging of the tube, CO2 colormetric indicator and symmetric breath sounds. The tube was secured at 21 cm at the lips. Other Information: Supervising Anesthesiologist: Dr. Corrigan
[2024-02-13] MEDS: lidocaine-epi 1% 20 mL INJ INJECTION (16:39)
[2024-02-13] MEDS: VANCOMYCIN ADD-Vantage 1,000 MG VIAL 1000 MG XX (17:03)
--- NOTE | 2024-02-13 18:31 | P.OP_ITS ---
Operative Report Date of procedure: February 13, 2024 Pre-op diagnosis: Lumbar stenosis with neurogenic claudication L5-S1 spondylolisthesis Surgeon: Ayden Doyle DO Estimated blood loss (mL): 200 Procedure: 1. L5/S1 Interbody fusion with posterolateral fusion 2. Instrumentation L5-S1 3. Insertion of Cage at L5/S1 4. L5-S1 laminectomy with facetectomies 5. use of autograft from same incision 6. allograft 7. Bone marrow aspirate from right iliac crest 8. Use of computer navigation/stereotactic for the spine Patient is brought to the operative suite. After undergoing anesthesia, the patient had neuro monitoring attached. Patient was then placed in the prone position on the Bernardo table. All areas of impingement were well-padded. Patient was then prepped and draped in the normal sterile fashion. Skin incision was then made over the L4-L5 disc space. Subperiosteal dissection was made out to the transverse processes of L5 and S1. Next attention was brought to the [employer] bone marrow aspirate kit was used to aspirate bone marrow aspirate. This was done by using the sharp probe to open up the bone. Aspiration was performed and then the blunt probe was then used to dissect down to through the bone tunnel. An aspirating well drawn back a millimeter approximately 20 cc of bone marrow aspirate was used. Admixed with the allograft and autograft bone that will be used. Next attention was brought to placing the computer navigation fiducial. The pins were placed in the right iliac crest. These pins were later removed at the end of the case. The fiducial was then attached to this. The C-arm was then brought in and spun around the patient. The information of the C-arm was then loaded the computer and this was later used for the placement of the pedicle screws. Next attention was brought to placing the pedicle screws. The technique for placing the pedicle screws was to use a drill followed by the gearshift probe linked to computer navigation. Followed by the ball probe to feel the superior inferior medial lateral lambert of the pedicles. Then placement of the screws using computer navigation. Was done at each pedicle. Screws were placed at L5 bilaterally and S1. Next attention was brought to performing the laminectomy ofL5. This was done using the high-speed bur Kerrisons and curettes. Once the lamina was removed and then attention was brought to performing a partial facetectomy on the contralateral side. This was done again using the high-speed bur curettes and Kerrisons. The ligamentum flavum was taken down bilaterally from L5 to S1. Attention was then brought to the facet on the ipsilateral side. The facet was taken down. The S1 nerve was decompressed as it passed around the S1 pedicle. The laminectomy was done for purposes of decompressing the nerve as well as placement of the cage. The G0dgokh was identified as it traversed through the L5/S1 foramen. The thecal sac was identified and retracted. The L4/5 disc base was identified. Using a knife the disc base was opened. And then sequential haydee were placed. The first shaver was a 6 and the last shaver was a 10. Using a pituitary and down going curette the endplates were scraped and disc material was removed from the space. Once adequate decompression of the disc base was felt to be had. Osteoamp sponge was packed into the anterior aspect of the disc base. Then a size 11 cage from [facility] was placed after packing osteoamp into the cage. While placing the cage the thecal sac and L5 nerve was protected. C arm was used to ensure that the cages placed in the appropriate position. Attention was then brought to attaching the rods to the screws placed in the L5 bilaterally and S1 bilaterally. Caps were torqued into position. Locking the construct in place. Wound was copiously irrigated and then attention was brought to decorticating the facets and transverse processes laterally. Bone that was taken down from the lamina was used along with osteoamp fibers and sponges were packed into the lateral gutters along the facet joints. This was done bilaterally. Wound was then closed in a layered fashion starting with the thoracolumbar fascia. 0-vicryl was used the sub cutaneous tissue was closed with 2-0 vicryl and skin with 4-0 monocryl. Glue was then used to seal the skin and a steril dressing was applied. Patient was then placed in the supine position. The endotracheal tube was removed and patient was transferred to the PACU in stable condition.
[2024-02-13] MEDS: HYDROmorphone 1 mg/mL INJ 1 mL 0.5 MG IVP (18:55)
[2024-02-13] MEDS: fentaNYL 50 mcg/mL INJ 2mL IVP (19:10)
[2024-02-13] MEDS: lactated ringers 1,000 ML 90 ML IV (20:11)
[2024-02-13] MEDS: ketorolac 30 mg/mL INJ IVP (21:29)
[2024-02-13] MEDS: HYDROcodone-acetaminophen 5-325 mg Tablet PO (22:09)
[2024-02-13] MEDS: acetaminophen 325 mg Tablet 650 MG PO (23:12)
[2024-02-14] VITALS: BP 92/57; PULSE 83; RESP 17; TEMP 36.6; O2SAT 95
[2024-02-14 01:42] VITALS: BP 92/57
[2024-02-14] MEDS: HYDROcodone-acetaminophen 5-325 mg Tablet PO ×2 (02:28→08:30)
[2024-02-14] MEDS: ketorolac 30 mg/mL INJ IVP (03:53)
[2024-02-14] MEDS: acetaminophen 325 mg Tablet 650 MG PO (03:53)
[2024-02-14 04:00] VITALS: BP 97/57; PULSE 83; RESP 17; TEMP 36.8; O2SAT 96
--- NOTE | 2024-02-14 08:05 | PM.DCS ---
Discharge Providers Date of Admission: 02/13/24 17:48 Date of Discharge: February 14, 2024 Attending Provider at Admission: Ayden Doyle DO Attending Provider at Discharge: Ayden Doyle DO Primary Care Provider: TRACEY White Reason for Visit Reason for Visit: M48.062 Physical Exam Narrative: Patient resting in bed at this point pain is tolerable. Patient was having severe pain last night. But at this point she is doing well. Urinary Catheter Management: Rain: Cath Placed During This Visit: yes Reason for Continuing Indwelling Catheter: Perioperative Use in Selected Surgeries Urinary Catheter Date of Insertion: 02/13/24 Urinary Catheter Time of Insertion: 16:38 Discharge Data Studies Completed and Pending Pending at discharge Category Date Time Status C-arm Fluoroscopy 12650 Routine Exams 02/13/24 12:22 Ordered Laboratory Results Blood Type A Positive 02/13/24 13:25 Rho(D) Type Rh positive 02/13/24 13:25 Antibody Screen Negative 02/13/24 13:25 Vitals Last Vital Signs Temp 98.3 F 02/14/24 04:00 Pulse 83 02/14/24 04:00 Resp 17 02/14/24 04:00 BP 97/57 02/14/24 04:00 Pulse Ox 96 02/14/24 04:00 O2 Del Method Room Air 02/14/24 04:00 Discharge Plan Discharge Patient Disposition: Home Condition: Stable Prescriptions: New hydrocodone-acetaminophen 5-325 mg tablet 1 - 2 tab PO .Q4-6H Qty: 40 0RF Continued Caltrate 600-D Plus Minerals 600 mg calcium- 800 unit-50 mg tablet 1 tab PO BID Qty: 60 1RF No Action (DME) Bone Growth Stimulator See Rx Instructions .Route .MEDSUPPLY Qty: 1 0RF Rx Instructions: As directed Discharge Orders: Discharge Order (Routine); Ordered 02/14/24 Ordered By: Ayden Doyle Discharge Activity: Limit activity as instructed Patient Instructions: Acute Wound Care (DC), Opioid Safety, Post Anesthesia Care Activity Restrictions/Additional Instructions: Thank you for [facility] for your care! The following is a list of instructions, from your provider, to follow upon your discharge to ensure you have the optimal recovery from your recent injury orsurgery. Follow-up care is a thacker part of your treatment and safety. Be sure to make and go to all appointments, and call your doctor if you are having problems. If you do not already have a follow-up appointment made, call Dr. Doyle office in the next 1-3 days to make follow up appointment for 1 weeks at [phone]. It is also a good idea to know your test results and keep a list of the medicines you take. Medications will be prescribed for you at your provider's discretion. These medications are to be used as instructed; if they are taken more often that prescribed they will not be refilled early and in most cases will not be refilled at all. > When a refill is needed,you should contact galindo yeh 2-3 business days before your prescription runs out. Medications will NOT be refilled by call center operations manager providers after hours! > Many pain medications contain Tylenol (Acetaminophen). Do not consume more than 4,000 mg of Tylenol per day in total with any combination ofmedications. > Pain medications can cause constipation. Please use an over the counter stool softener as directed, while taking pain medications. Consulty our local pharmacist with questions or recommendations on stool softeners. If constipation persists, contact our office or your primary care provider. > While under our care,you are not to receive pain medications or other controlled substances from any other provider unless our office is notified and approves. Any attempts to do so will result in refusal to prescribe any further pain medications and possible dismissal from our practice. ? Change dressing in 1 week in clinic ? Showering is permitted, however we ask that you do not take a bath, sit in a whirlpool / Jacuzzi, or go swimming for 1 month. For only the first 2 days after surgery, lt wilt be necessary for you to cover your wound/dressing with plastic and tape to keep it dry. ? Walking is essential for the healing process after surgery. We would like you to slowly advance your walking. This should be done on relatively flat clear ground (inside or out) or can be done on a treadmill. Remember this goal does not have to happen all at once, slowly increase your distance and duration. This can be broken into more more than one walk per day as tolerated. Patients who walk as directed after surgery rarely require Physical Therapy. In the unlikely event this issue arises your provider will direct hospital staff to make the appropriate arrangements. ? No lifting over 5 pounds {a gallon of milk) or bending/twisting until further notice. Each of these activities places an unnecessary amount of stress onto the body and can impede the delicate healing process. > Instead of bending at the waist, keep your back straight and bend at the knees. > Instead of twisting your torso, keep your back straight and turn your entire body with your feet. ? You may sleep in any position which makes you comfortable. Many patients find comfort sleeping in a reclining chair. It is not abnormal to have difficulty sleeping for the first several weeks following your surgery. We recommend trying Benadry! or Tylenol PM as directed to help with your sleeping difficulties. Both medications are over the counter and available withoutprescription. ? NO SMOKING!!! Smoking dramatically increases the probability of developing postoperative wound infections. ? Common complaints after lumbar and/or thoracic spine surgery include, but are not limited to: numbness and/or tingling in the legs, pain around the incision and surrounding tissues, muscle spasms, or stiffness of the middle to low back. Contact our office if these symptoms persist or if an acute change occurs. ? No driving for the first 3-5days, and not while taking narcotics [] until seen at your follow-up appointment and cleared. There are no restrictions for riding on short trips, however if you take a longer trip, arrangements should be made to make regular stops to get out of the vehicle and stretch . ? Swelling is an unfortunate event that will take place with any surgery and is the primary source of your postoperative discomfort. While walking and regular approved activities helps control inflammation, there are additional steps you can take to minimizeswelling. > Place ice over the surgical site and surrounding tissue for twenty minutes, followed by applying a low/medium heat (heating pad) for an additional twenty minutes every 1-2 hours as needed for painrelief. > You may use of over the counter anti-inflammatory medications (Ibuprofen, Motrin, Aleve, Advil, etc) as directed on the package label. These types of medicines wm significantly reduce the amount of discomfort you experience after surgery from swelling. It should be noted that if you have and allergy to any of these medications, or a history of ulcers or kidney disease you should consult you primary care provider prior to starting these medications. Discharge Attestations Time Spent in Discharge Care*: less than 30 min Quality Metrics Clinical Quality Measures [ No reported AMI, CVA or VTE this stay] Coding Level of Care Code Acute Code for Chg Fwd
[2024-02-14 08:27] VITALS: BP 101/54; PULSE 57; RESP 18; TEMP 36.8; O2SAT 96
[2024-02-14] MEDS: docusate sodium 100 mg Capsule PO (08:31)
[2024-02-14] MEDS: ceFAZolin 2,000 mg SDV 2000 MG IVP (08:32)
[2024-02-14 08:58] VITALS: PULSE 71; RESP 18; O2SAT 98
[2024-02-14 12:09] VITALS: BP 113/63; PULSE 64; RESP 18; TEMP 36.8; O2SAT 95
== END 2024-02-14 12:50 | disposition home or self-care (01) ==
LOC: MEDSURG 17:49
PROVIDERS: Admitting Provider Orthopaedic Surgery; PCP Nurse Practitioner Family; Visit Provider Orthopaedic Surgery
PROC: (CPT 22633; principal; 2024-02-13 13:40)
PROC: (CPT 22612; 2024-02-13 13:40)
DX: M48.062 Spinal stenosis, lumbar region with neurogenic claudication (principal); M43.17 Spondylolisthesis, lumbosacral region; F17.200 Nicotine dependence, unspecified, uncomplicated
CPT/HCPCS: 22633; 20930; 20936; 20939; 22842; 22853; 61783; 63052; 36415; 51702; 72100; 76000; 86850; 86900; 97116; 97161; C1713; G0378; J0131; J0690; J1100; J1171; J1644; J1885; J2405; J2704; J3010; J3370; J3490; J7030; J7120

== ENCOUNTER → 2024-04-22 10:51 | Outpatient (BNVA) | payer MEDICAID, SELFPAY | PROVIDERS: PCP Nurse Practitioner Family; Visit Provider Nurse Practitioner Family | DX: E55.9 Vitamin D deficiency, unspecified (principal); R53.82 Chronic fatigue, unspecified | CPT/HCPCS: 80053; 81003; 82306 ==

== ENCOUNTER → 2024-04-29 08:02 | Outpatient (BNVA) | payer MEDICAID, SELFPAY | PROVIDERS: PCP Nurse Practitioner Family; Visit Provider Orthopaedic Surgery | DX: Z98.1 Arthrodesis status (principal) | CPT/HCPCS: 72100 ==

== ENCOUNTER → 2024-07-22 14:42 | Outpatient (BNVA) | payer MEDICAID, SELFPAY | PROVIDERS: PCP Nurse Practitioner Family; Visit Provider Orthopaedic Surgery | DX: Z98.1 Arthrodesis status (principal) | CPT/HCPCS: 72100 ==

== ENCOUNTER 2024-07-27 05:00 | Outpatient (RCR) | payer MEDICAID, SELFPAY | END 2024-08-25 23:59 | disposition home or self-care (01) | LOC: WPT 05:00 | PROVIDERS: Visit Provider Orthopaedic Surgery | DX: M54.50 Low back pain, unspecified (principal); G89.29 Other chronic pain | CPT/HCPCS: 97110; 97161; 97530 ==

== ENCOUNTER 2024-08-15 12:50 | Outpatient (CLI) | payer MEDICAID, SELFPAY ==
--- NOTE | 2024-08-15 12:52 | MR_ITS ---
WS: [id number] MRI CERVICAL SPINE NONCONTRAST HISTORY: neck pain COMPARISON: None available. Technique: Multiplanar, multisequence noncontrast imaging of the cervical spine. Normal cervical alignment with no compression fracture or significant disc space narrowing. Signal within the cervical cord is normal. Visualized posterior fossa is unremarkable. Craniocervical junction, C1 and C2 relationship, odontoid process and soft tissues are normal. C2-C3: Normal. C3-C4: Normal. C4-C5: Normal. C5-C6: Normal. C6-C7: Very mild disc bulging. Mild facet arthritis. No stenosis. C7-T1: Normal. Paraspinal soft tissue are normal. MR/MR cervical spin wo con* [id number] IMPRESSION: 1. No significant central or foraminal stenosis. 2. Normal cervical alignment. 3. Normal signal within the cord.
== END 2024-08-15 12:51 | disposition home or self-care (01) ==
PROVIDERS: PCP Nurse Practitioner Family; Visit Provider Orthopaedic Surgery
DX: M50.323 Other cervical disc degeneration at C6-C7 level (principal); M47.892 Other spondylosis, cervical region
CPT/HCPCS: 72141

== ENCOUNTER → 2025-02-16 10:49 | Outpatient (BNVA) | payer MEDICAID, SELFPAY | PROVIDERS: PCP Nurse Practitioner Family; Visit Provider Nurse Practitioner Family | DX: R30.0 Dysuria (principal) | CPT/HCPCS: 81003; 87086 ==